=== PATIENT | female | born 1960 | race Caucasian/White ===

== ENCOUNTER 2018-10-01 10:10 | Emergency (ER) | payer OTHER ==
[2018-10-01 14:30] VITALS: BMI 28.8
--- NOTE | 2018-10-01 15:24 | ED PDOC ---
HPI: Abdomen Additional Complaint(s): 58 yo female patient present to the ED c/o epigastric pain since 2 days ado but worsen since last night. Patient reports pain as intermittent, 7/10, no radiated, no related with any food, associated nausea but denies vomiting, diarrhea, constipation, chest pain , sob. No sick contacts or recent travel outs mega the country. PMD: Dr Morrison <Kev Carcamo - Last Filed: 10/01/18 18:33> Supervising Attending Note - Attestation: I have personally seen and examined this patient.: Yes I have fully participated in the care of the patient.: Yes I have reviewed all pertinent clinical information: Yes - Notes: Notes:: patient was seen/examined w/ resident and agree with findings, labs and US report reviewed, discussed need for followup w PMD/surgery w patient and family. Nontender abdomen on re-eval/ disposition home. <Julio Cesar Sosa III - Last Filed: 10/03/18 15:31> Past Medical History - Family History Family History: States: Unknown Family Hx <Kev Carcamo - Last Filed: 10/01/18 18:33> Vital Signs: Last Vital Signs Temp 98.4 F 10/01/18 18:50 Pulse 60 10/01/18 18:50 Resp 18 10/01/18 18:50 BP 110/58 L 10/01/18 18:50 Pulse Ox 99 10/01/18 18:50 <Julio Cesar Sosa III - Last Filed: 10/03/18 15:31> - Home Medications Home Medications: Ambulatory Orders Medication Instructions Recorded Cyclobenzaprine HCl [Flexeril] 10 mg PO TID PRN #15 tab 02/04/15 Naproxen [Naprosyn] 500 mg PO BID PRN #30 tab 02/04/15 Diphenhydramine Hydrochlorid 50 mg PO Q6 #20 cap 05/14/15 [Benadryl] Famotidine [Pepcid] 20 mg PO BID #20 tab 05/14/15 Prednisone 20 mg PO DAILY #35 tab 05/14/15 Famotidine [Pepcid] 20 mg PO TID 7 Days #20 tab 10/01/18 Ibuprofen [Motrin Tab] 600 mg PO Q8H 7 Days #30 tab 10/01/18 - Allergies Allergies/Adverse Reactions: Allergies Allergy/AdvReac Type Severity Reaction Status Date / Time No Known Allergies Allergy Verified 05/14/15 13:05 Review of Systems ROS Statement: Except As Marked, All Systems Reviewed And Found Negative <Kev Carcamo - Last Filed: 10/01/18 18:33> Physical Exam - Physical Exam Appears: Positive for: No Acute Distress Head Exam: Positive for: NORMAL INSPECTION Skin: Positive for: Normal Color, Warm, Dry Eye Exam: Positive for: EOMI, PERRL Neck: Positive for: Painless ROM, Supple Cardiovascular/Chest: Positive for: Regular Rate, Rhythm. Negative for: Murmur Respiratory: Positive for: Normal Breath Sounds. Negative for: Rales, Wheezing Gastrointestinal/Abdominal: Positive for: Bowel Sounds, Soft, Tenderness (on epigastrium and RUQ, Ramon sign +). Negative for: Mass, Distended, Guarding Back: Negative for: L CVA Tenderness, R CVA Tenderness Neurological/Psych: Positive for: Awake, Alert <Kev Carcamo - Last Filed: 10/01/18 18:33> - Laboratory Results Result Diagrams: 10/01/18 14:10 10/01/18 16:00 <Kev Carcamo - Last Filed: 10/01/18 18:33> - Laboratory Results Result Diagrams: 10/01/18 14:10 10/01/18 16:00 Lab Results: Total Bilirubin 0.3 mg/dl (0.2-1.3) 10/01/18 16:00 AST 31 U/L (14-36) 10/01/18 16:00 ALT 37 U/L (9-52) 10/01/18 16:00 Alkaline Phosphatase 97 U/L (38-126) 10/01/18 16:00 Total Protein 8.5 G/DL (6.3-8.2) H 10/01/18 16:00 Albumin 4.7 g/dL (3.5-5.0) 10/01/18 16:00 Globulin 3.8 gm/dL (2.2-3.9) 10/01/18 16:00 Albumin/Globulin Ratio 1.2 (1.0-2.1) 10/01/18 16:00 Lipase 99 U/L (23-300) 10/01/18 16:00 <Julio Cesar Sosa III - Last Filed: 10/03/18 15:31> Medical Decision Making Medical Decision Making: DDx includes: Gastritis, cholecystitis, biliary colic, pancreatitis, duodenal ulcer Plan: - IV fluids - cbc, cmp, lipase - Pepcid 20 iv once - zofran 4 mg iv once - Abd US limited RUQ - Reeval 1745 Patient feeling better after treatment, blood work wnl US: Distended gallbladder whit gallstones, no signs of acute cholecystitis Will discharge pt home, instructions to f/u at [facility] and General surgery for further recommendations. <Kev Carcamo - Last Filed: 10/01/18 18:33> Disposition - Patient ED Disposition Is Patient to be Admitted: No - Disposition Disposition: Routine/Home Disposition Time: 18:21 <Kev Carcamo - Last Filed: 10/01/18 18:33> <Julio Cesar Sosa III - Last Filed: 10/03/18 15:31> - Clinical Impression Clinical Impression: Gallstones and inflammation of gallbladder without obstruction, Biliary colic - Disposition Referrals: [facility] [Outside] Kellen Camarena MD [Staff Provider] - Condition: IMPROVED Prescriptions: Famotidine [Pepcid] 20 mg PO TID 7 Days #20 tab Ibuprofen [Motrin Tab] 600 mg PO Q8H 7 Days #30 tab Instructions: Gallstones (DC) Forms: [employer] (Macedonian) Print Language: DOMINICAN
[2018-10-01 17:30] LABS: BLOOD UREA NITROGEN 8 mg/dl (7-17); CALCIUM 9.5 mg/dL (8.4-10.2); GFR NON-AFRICAN AMERICAN > 60
[2018-10-01 17:31] LABS: ALB/GLOB RATIO 1.2 (1.0-2.1); ALBUMIN 4.7 g/dL (3.5-5.0); AST/SGOT 31 U/L (14-36)
[2018-10-01 17:33] LABS: ALT/SGPT 37 U/L (9-52); LIPASE 99 U/L (23-300)
[2018-10-01 17:42] LABS: HEMOGLOBIN 13.8 g/dL (12.0-16.0); MEAN CELL VOLUME 87.5 fl (81.0-99.0); RBC 4.71 Mil/uL (3.80-5.20); WHITE BLOOD COUNT 8.7 K/uL (4.8-10.8)
[2018-10-01 17:43] LABS: BASO % 0.6 % (0.0-2.0); EOS % 2.4 % (0.0-4.0); LYMPH % 36.7 % (20.0-40.0); MEAN CORPUSCULAR HEMOGLOBIN 29.4 pg (27.0-31.0); MEAN CORPUSCULAR HGB CONC 33.6 g/dL (33.0-37.0); MONO % 6.3 % (0.0-10.0); RED CELL DISTRIBUTION WIDTH 13.1 % (11.5-14.5)
[2018-10-01 17:44] LABS: BASO # 0.1 K/uL (0.0-0.2); EOS # 0.2 K/uL (0.0-0.7); LYMPH # 3.2 K/uL (1.0-4.3); MONO # 0.5 K/uL (0.0-0.8); NEUT # 4.7 K/uL (1.8-7.0); NRBC % 0.2 % (0.0-0.0)
--- NOTE | 2018-10-01 18:13 | US ---
Date of service: 10/01/2018 HISTORY: epigastric and RUQ pain COMPARISON: None. TECHNIQUE: Sonographic evaluation of the right upper quadrant of the abdomen. FINDINGS: LIVER: Measures 14.7 cm in length. Hepatopedal blood flow. Fatty infiltration manifest ultrasonographically as increased echogenicity of the liver parenchyma. No mass. No intrahepatic bile duct dilatation. GALLBLADDER: Cholelithiasis. Negative study for gallbladder significant wall thickening, pericholecystic fluid, sonographic Ramon's sign. COMMON BILE DUCT: Measures 2.5 mm. No stones. No dilatation. PANCREAS: Obscured by overlying bowel gas. Non diagnostic assessment of the pancreas. RIGHT KIDNEY: Measures cm in length. Normal echogenicity. No calculus, mass, or hydronephrosis. AORTA: No aneurysmal dilatation. IVC: Unremarkable. OTHER FINDINGS: None . IMPRESSION: Distended gallbladder, gallstones. No ultrasound findings to suggest acute cholecystitis. Limitations of the current study: The pancreas is not visualized.
[2018-10-01 18:57] VITALS: BP 110/58; PULSE 60; RESP 18; TEMP 98.4; O2SAT 99
--- NOTE | 2018-10-03 14:06 | CARD ---
APPROVED REPORT Date of service: 10/01/2018 EKG Measurement Heart [id number] NM [id number] [id number] <Conclusion> Normal sinus rhythm Normal Electrocardiogram
== END 2018-10-01 18:50 | disposition home or self-care (01) ==
LOC: H.EDDOWN 10:10 → H.ER 10:10
DX: K80.20 Calculus of gallbladder without cholecystitis without obstruction (principal)